=== PATIENT | female | born 2000 | race Two or more races ===

== ENCOUNTER 2025-01-10 02:54 | Observation (INO) | payer MEDICAID, SELFPAY ==
[2025-01-09 21:31] VITALS: BMI 23.3
[2025-01-09 21:56] VITALS: BP 119/78; PULSE 115; RESP 20; TEMP 37.6; O2SAT 97
--- NOTE | 2025-01-09 22:03 | PD.EDRME ---
Rapid Medical Screening Exam RME Arrival date/time: 01/09/25 21:30 24 yo f present to ED for c/o n/v for 1 day + 31 week I have greeted and performed a focused initial assessment of this patient. A comprehensive ED assessment and evaluation of the patient, analysis of all test results, and completion of the medical decision making process will be conducted by additional ED providers. Chief Complaint: Fever Time Seen by Provider: 01/09/25 21:39 Vital signs: Vital Signs Temperature 99.6 F 01/09/25 21:56 Pulse Rate 115 H 01/09/25 21:56 Respiratory Rate 20 01/09/25 21:56 Blood Pressure 119/78 01/09/25 21:56 Pulse Oximetry (%) 97 01/09/25 21:56 Oxygen Delivery Method Room Air 01/09/25 21:56
[2025-01-09 22:34] VITALS: BP 128/79; PULSE 135; RESP 18; TEMP 38.2; O2SAT 97
[2025-01-09 22:36] LABS: Basophils % (Auto) 0 % (0-2.5); Eosinophils % (Auto) 0 % (0-10); Hematocrit 35.5 % (36.0-46.0); Hemoglobin 12.9 g/dL (12.0-16.0); Immature Granulocytes % (Auto) 1 % (0-0); Immature Granulocytes Auto 0.14 Thou/mm3 (0.00-0.00); Lymphocytes # (Auto) 1.1 Thou/mm3 (1.0-4.8); Lymphocytes % (Auto) 7 % (10-50); Mean Corpuscular HGB Conc 36.3 g/dl (31.0-37.0); Mean Corpuscular Hemoglobin 31.8 pg (25.0-35.0); Mean Corpuscular Volume 87 fL (80-100); Monocytes # (Auto) 0.8 Thou/mm3 (0.0-0.8); Monocytes % (Auto) 6 % (0-12); Neutrophils # (Auto) 12.9 Thou/mm3 (1.8-7.7); Neutrophils % (Auto) 86 % (37-80); Nucleated Red Blood Cell % 0 /100 WBC (0); Platelet Count 140 Thou/mm3 (140-440); RDW Standard Deviation 44.7 fL (36.4-46.3); Red Blood Count 4.06 Miln/mm3 (4.00-5.20); White Blood Count 14.9 Thou/mm3 (3.6-11.0)
--- NOTE | 2025-01-09 22:36 | XR_ITS ---
Examination: AP chest single view TECHNIQUE: AP portable upright chest single view Examination time: January 09, 2025, 10:48 PM INDICATIONS: Sepsis. Today FINDINGS: Normal heart size No pneumonia or pulmonary edema No left-sided rib fractures IMPRESSION: No pneumonia or pulmonary edema
--- NOTE | 2025-01-09 22:36 | EKG_ITS ---
[facility] Test Date: 2025-01-09 Pat Name: TIMOTHY NORMAN Department: Room: - Gender: Female Life Sciences Instructor: : 2000 Requested By: Kalli Davidson Order Number: [id number] Reading MD: Kalli Davidson Measurements Intervals [place] Rate: 131 P: 37 MA: 139 QRS: -10 QRSD: 77 T: 6 QT: 289 QTc: 427 Interpretive Statements SINUS TACHYCARDIA ABNORMAL RHYTHM ECG No previous ECG available for comparison /store/S0/[id number].pdf
[2025-01-09 22:44] LABS: Lactate (Lactic Acid) 1.3 mMol/L (0.4-2.0)
[2025-01-09 22:51] LABS: Partial Thromboplastin Time 26.8 Seconds (22.0-36.0); Prothrombin Time 10.5 Seconds (9.0-12.2)
--- NOTE | 2025-01-09 22:54 | PC.NURSE ---
Initial contact with pt. N/V/D, and fever since 09:00. Denies any contraction, vag discharge or abd pain. at bedside.
[2025-01-09 22:56] LABS: Alanine Aminotransferase 19 U/L (10-49); Albumin, Serum 3.8 gm/dL (3.5-5.0); Albumin/Globulin Ratio 1.4 (1.2-2.2); Alkaline Phosphatase 130 U/L (46-116); Anion Gap 8 (7-16); Aspartate Amino Transferase 18 U/L (0-34); BUN/Creatinine Ratio 8 Ratio (12-20); Bilirubin,Total 0.4 mg/dL (0.3-1.2); Blood Urea Nitrogen < 5 mg/dL (9-23); Calcium (Corrected) 9.2 mg/dL (8.5-10.1); Carbon Dioxide 21.6 mMol/L (20.0-31.0); Chloride 105 mMol/L (98-107); Creatinine (Component) 0.6 mg/dL (0.6-1.3); Globulin 2.7 gm/dL (2.3-3.5); Glucose 95 mg/dL (74-106); Lipase 56 U/L (12-53); Osmolality,Calculated 267 (275-295); Potassium 3.6 mMol/L (3.4-5.1); Sodium 135 mMol/L (136-145); Total Protein 6.5 gm/dL (5.7-8.2); Troponin I < 0.002 ng/mL (0.0-0.045); eGFR > 60 See Note
[2025-01-09 23:00] VITALS: BP 109/74; PULSE 138; RESP 28; TEMP 37.7; O2SAT 98
[2025-01-09] MEDS: SODIUM CHLORIDE 0.9% 1000 ML 1,000 ML 999 ML IV (23:10)
[2025-01-09 23:14] VITALS: TEMP 37.7
[2025-01-09] MEDS: METOCLOPRAMIDE INJ 5 MG/ML VIAL 2 ML 10 MG IVP (23:14)
[2025-01-09] MEDS: ACETAMINOPHEN 325 MG TABLET 650 MG PO (23:14)
--- NOTE | 2025-01-09 23:49 | EDNOTE_ITS ---
Nausea/Vomit./Diarrhea-RME/HPI General Chief complaint: Fever Stated complaint: FEVER, VOMITING, 7 MONTHS Time Seen by Provider: 01/09/25 21:39 Source: patient Arrival date/time: 01/09/25 21:30 Mode of arrival: ambulatory Limitations: no limitations RME / HPI RME / HPI Narrative: 01/09/25 21:30 24 yo f present to ED for c/o n/v for 1 day + 31 week I have greeted and performed a focused initial assessment of this patient. A comprehensive ED assessment and evaluation of the patient, analysis of all test results, and completion of the medical decision making process will be conducted by additional ED providers. Dr. Reece?s Main ED Evaluation: 24-year-old female at 31 weeks gestation presenting to the emergency department after 1 day history of vomiting and nonbloody diarrhea. The patient states she was tolerating p.o. yesterday. She comes the emergency department for subjective fever today at home. No abdominal pain. No abdominal cramping. No cough. Related Data Previous Rx's ?Medication ?Instructions ?Recorded ibuprofen 600 mg tablet 600 mg PO Q6H #30 tabs 03/17 Allergies Allergy/AdvReac Type Severity Reaction Status Date / Time Penicillins Allergy Unknown Verified 03/17/24 10:59 Review of Systems Review of Systems Systems Reviewed: All systems reviewed, normal except as documented Past Medical History Past Medical History NEUROLOGIC: Negative Neurological Disorders CARDIAC: Negative Cardiac Disorders Social History SMOKING STATUS: Never smoker ED Exam General Limitations: Present no limitations General appearance: Present alert and in no apparent distress Head Head exam: Present atraumatic Eye Eye exam: Present normal appearance, PERRL and EOMI ENT ENT exam: Present normal exam, normal oropharynx and mucous membranes moist Neck Neck exam: Present normal inspection, full ROM and trachea midline Chest Chest inspection: Present normal inspection and symmetric chest wall rise Respiratory Respiratory exam: Present normal lung sounds bilaterally Cardiovascular Cardiovascular exam: Present regular rate, normal rhythm and normal heart sounds Abdominal Exam Abdominal exam: Present soft and normal bowel sounds Extremities Exam Extremities exam: Present normal inspection and full ROM Back Exam Back exam: Present normal inspection and full ROM Neurological Exam Neurological exam: Present alert, oriented X3 and CN II-XII intact Psychiatric Psychiatric exam: Present normal affect and normal mood Skin Skin exam: Present warm, dry, intact and normal color Course Course Course Narrative: 2235 Sepsis alert initiated. Orders made at this time are congruent with ED Marco Antonio lt Sepsis Order List. Re-evaluation is to be completed. 2309 Sepsis reassessment performed consisting of lab review, vitals, physical exam including auscultation of heart, lungs, and visual evaluation of capillary refills, mucosal membranes and extremities. Quality Measures Current suspected stage: sepsis Possible source: unknown Blood cultures ordered: yes Antibiotic ordered: Yes Pertinent labs: 01/09/25 22:16 Lactic Acid 1.3 mMol/L (0.4-2.0) sepsis Orders Category Date Time Status Place in Observation Status Routine Admission 01/10/25 03:25 Active Bedside COVID-19 Antigen Test NOW Care 01/10/25 00:10 Active Bedside Influenza A&B Antigen Test NOW Care 01/09/25 22:03 Completed Bedside Influenza A&B Antigen Test NOW Care 01/10/25 00:10 Completed Clinical Assistant Q4H START 00 Care 01/09/25 22:36 Active Continuous Monitoring Routine Care 01/10/25 03:26 Ordered Continuous Pulse Oximetry NOW Care 01/09/25 22:36 Completed heart tone auscultation Q4H Care 01/09/25 22:02 Active IV [Insert IV] STAT Care 01/09/25 22:02 Active In and Out Catheter PRN Care 01/09/25 22:36 Active Insert IV NOW Care 01/09/25 22:36 Active NPO NOW Care 01/09/25 22:36 Active Non-Stress Test NOW Care 01/09/25 22:45 Active Non-Stress Test Now Care 01/10/25 03:26 Active Diet NPO (NOW) Diet 01/09/25 22:36 Active US OB >= 14 weeks Fetus Stat Exams 01/10/25 03:29 Ordered US OB biophysical profile Stat Exams 01/10/25 03:41 Ordered XR chest 1V SEPSIS PROTOCOL Stat Exams 01/09/25 22:36 Completed Blood Culture (Lab) Stat Lab 01/09/25 22:11 Received CBC Stat Lab 01/09/25 22:16 Completed CMP [Comprehensive Metabolic Panel] Stat Lab 01/09/25 22:16 Completed Influenza A & B Rapid Panel Stat Lab 01/10/25 00:00 Stop Req Lactate (Lactic Acid) Stat Lab 01/09/25 22:16 Completed Lipase Stat Lab 01/09/25 22:16 Completed Partial Thromboplastin Time Stat Lab 01/09/25 22:16 Completed Prothrombin Time with INR Stat Lab 01/09/25 22:16 Completed Troponin I Stat Lab 01/09/25 22:16 Completed UA [Urinalysis] Stat Lab 01/09/25 23:54 Completed UA, C/S IF [Urinalysis, C/S if Indicated] Stat Lab 01/10/25 01:51 Completed Urinalysis Stat Lab 01/09/25 23:54 Completed Urine Culture Stat Lab 01/09/25 23:54 Received Acetaminophen Tab [Tylenol Tab] Med 01/09/25 22:39 Discontinued 650 mg PO X1 ONE Metoclopramide Inj [Reglan Inj] Med 01/09/25 22:02 Discontinued 10 mg IVP X1 ONE Ringers Lactated 1000 ml [Lactated Ringers] 1,000 ml Med 01/10/25 03:30 Discontinued IV 125 mls/hr Sodium Chloride 0.9% 1000 ml [Ns] 1,000 ml Med 01/10/25 03:40 Discontinued IV 125 mls/hr Sodium Chloride 0.9% 1000 ml [Ns] 1,000 ml Med 01/10/25 03:46 Active IV 125 mls/hr Sodium Chloride 0.9% 1000 ml [Ns] 1,000 ml Med 01/09/25 22:03 Discontinued IV 999 mls/hr Sodium Chloride 0.9% 1000 ml [Ns] 1,000 ml Med 01/10/25 01:40 Discontinued IV 999 mls/hr cefTRIAXone/D5w 1gm IV premix [Rocephin/D5w 1gm IV Med 01/10/25 01:39 Discontinued premix] 50 ml IV X1 EKG (RT) Stat RT 01/09/25 22:36 Draft Oxygen Delivery NOW RT 01/09/25 22:36 Active Vital Signs Vital signs: Vital Signs Temperature 99.6 F 01/09/25 21:56 Pulse Rate 115 H 01/09/25 21:56 Respiratory Rate 20 01/09/25 21:56 Blood Pressure 119/78 01/09/25 21:56 Pulse Oximetry (%) 97 01/09/25 21:56 Oxygen Delivery Method Room Air 01/09/25 21:56 Nausea/Vomiting/Diarrhea MDM Narrative MDM Narrative:: 24-year-old female at 31 weeks gestation and patient of Dr. Krishna presenting to the emergency department of 1 day of vomiting and diarrhea. Low-grade temp at 100.7 here in the emergency department and tachycardic. Patient screened positive for maternal sepsis secondary to her pulse being 130 temp being 100.7 and respiratory rate 22. The patient was 97% on room air and had good heart tones. While in the emergency department the patient had toco monitor done by the [facility] nurses and reported possible contractions. The patient states she does not feel that she is having contractions at this time. Her abdomen is soft and nontender. No CVA tenderness. Review of her blood shows a white count of 14 with manual creatinine normal at 5 and 0.6. Lactic acid is 1.3 and AST ALT and total bili are normal. Alk phos is slightly elevated at 130. Troponin is negative. Her initial urine had squamous cells but repeat urinalysis shows 2+ ketones negative nitrates, positive leukocytes, and 5 white blood cells. Chest x-ray shows no evidence of pneumonia. Patient had influenza and COVID done which were negative. Again the patient is not having dysuria, abdominal pain, chest pain or syncope. Scribe Attestation: I, Dea Matson, am scribing for and in the presence of Dr. Reece. Provider Notation: Although this document has been carefully reviewed, there may still be some phonetic and other typographical errors. These errors are purely grammatical due to imperfections in the software program and should not be construed in any way to compromise the substance of the patient's medical care during this visit. Patient data External records reviewed:: [facility] previous records Clinical information provided by:: patient Social determinants that could affect healthcare access:: none Patient has the following chronic illnesses:: na How is presenting disease/condition affected by chronic disease/condition?: no chronic disease Evaluation data The following diagnostics were reviewed and interpreted by me:: lab results, radiology exam(s) and EKG tracing(s) Lab and/or radiology exams considered but not ordered:: na Interpretation Summary: Examination: AP chest single view TECHNIQUE: AP portable upright chest single view Examination time: January 09, 2025, 10:48 PM INDICATIONS: Sepsis. Today FINDINGS: Normal heart size No pneumonia or pulmonary edema No left-sided rib fractures IMPRESSION: No pneumonia or pulmonary edema Dictated By: Marc Marquez MD Medications / Prescriptions Medications / Prescriptions considered but not ordered:: na Medication administrations:: Medication Administration History Sodium Chloride (Ns) 1,000 mls @ 125 mls/hr IV .Q8H KAT Stop: 02/09/25 03:45 Last Admin: 01/10/25 03:57 Dose: 125 mls/hr Documented By: KG Discontinued Medications Acetaminophen (Acetaminophen 325 Mg Tablet) 650 mg PO X1 ONE Stop: 01/09/25 22:40 Last Admin: 01/09/25 23:14 Dose: 650 mg Documented By: LB Sodium Chloride (Ns) 1,000 mls @ 999 mls/hr IV .Q1H1M ONE Stop: 01/09/25 23:03 Last Infusion: 01/10/25 01:39 Dose: Infused Documented By: Admin: 01/09/25 23:10 Dose: 999 mls/hr Documented By: LB Ceftriaxone Sodium/Dextrose (Rocephin/D5w 1gm Iv Premix) 50 mls @ 100 mls/hr IV X1 ONE Stop: 01/10/25 02:08 Sodium Chloride (Ns) 1,000 mls @ 999 mls/hr IV .Q1H1M ONE Stop: 01/10/25 02:40 Last Admin: 01/10/25 02:06 Dose: 999 mls/hr Documented By: LB Lactated Ringer's (Lactated Ringers) 1,000 mls @ 125 mls/hr IV .Q8H KAT Stop: 02/09/25 03:29 Sodium Chloride (Ns) 1,000 mls @ 125 mls/hr IV .Q8H KAT Stop: 02/09/25 03:39 Metoclopramide HCl (Metoclopramide Inj 5 Mg/Ml Vial 2 Ml) 10 mg IVP X1 ONE; Protocol Stop: 01/09/25 22:03 Last Admin: 01/09/25 23:14 Dose: 10 mg Documented By: LB as above Consultations Consultation(s) initiated? (list below): Yes Consultation #1 (Physician, Specialty, Details): see MDM Diagnosis Nausea Differential Diagnosis: other Most likely diagnosis given after review of the tests above:: see clinical impression below Admission Indicated Admission indicated?: indicated Admission Request Was there a request for admission?: Yes Admission Attestation Admission request attestation: Discussed case with [] from Hospitalist service regarding admission. Discussed patients ED course, exam findings, labs, and radiology results. The Hospitalist [agrees,declines] to accept the patient for admission. Disposition Plan Disposition Plan: Admit Critical Care Time Critical Care Time Critical Care Time: Yes Total Critical Care Time (min.): 45 Attestation: The high probability of sudden, clinically significant deterioration in the patient?s condition required the highest level of my preparedness to intervene urgently. ? The services I provided to this patient were to treat and/or prevent clinically significant deterioration. Services included the following: chart data review, reviewing nursing notes and/or old charts, documentation time, financial analysis consultant collaboration regarding findings and treatment options, medication orders and management, direct patient care, vital sign assessments and ordering, interp reting and reviewing diagnostic studies and lab tests. ? Aggregate critical care time includes only time during which I was engaged in work directly related to the patient?s care, as described above, whether at bedside or elsewhere in the Emergency Department. It did not include time spent performing other reported procedures or the services of residents, students, nurses or physician assistants. Discharge Plan Plan Disposition Comment: Patient close to the emergency department to [facility] Patient condition on transfer: Stable Prescriptions/Referrals Prescriptions/Med Rec: No Action ibuprofen 600 mg tablet 600 mg PO Q6H Qty: 30 0RF Referrals: No Primary/Family,Physician [Primary Care Provider] - In 1 week Patient/Caregiver Discharge Instructions Print Language: Kiswahili Stand Alone Forms: Kelsey Award Info., Patient Portal Info Letter
[2025-01-10] VITALS (41 sets, daily range): BP systolic 92–123; BP diastolic 53–70; PULSE 112–139; RESP 18–98; TEMP 37–37.7; O2SAT 94–100; BMI 27.4
[2025-01-10] LABS: Collection Type, Urine Clean Catch; Collection Type, Urine Voided
[2025-01-10 00:11] LABS: Bilirubin,Urine Negative (Negative); Blood,Urine Trace (Negative); Budding Yeast,Urine Present; Clarity,Urine Turbid (Clear/Hazy); Color,Urine Yellow (Lt Yel-Yel); Glucose, Urine Negative (Negative); Hyaline Casts,Urine < 1 /hpf (0-1); Ketones,Urine Trace (Negative); Leukocyte Esterase,Urine Positive (Negative); Nitrite,Urine Negative (Negative); Protein,Urine Trace (Neg - Trace); RBC,Urine 22 /hpf (0-3); Specific Gravity,Urine 1.016 (1.001-1.035); Squamous Epithelial Cell,Urine 18 /hpf (0-5); Urobilinogen,Urine Negative mg/dL (0.0-1.0); WBC,Urine 17 /hpf (0-5)
[2025-01-10 00:29] LABS: Bacteria,Urine Rare; Bilirubin,Urine Negative (Negative); Blood,Urine Negative (Negative); Clarity,Urine Turbid (Clear/Hazy); Color,Urine Yellow (Lt Yel-Yel); Glucose, Urine Negative (Negative); Hyaline Casts,Urine < 1 /hpf (0-1); Ketones,Urine Trace (Negative); Leukocyte Esterase,Urine Positive (Negative); Nitrite,Urine Negative (Negative); Protein,Urine Trace (Neg - Trace); RBC,Urine 14 /hpf (0-3); Specific Gravity,Urine 1.016 (1.001-1.035); Squamous Epithelial Cell,Urine 16 /hpf (0-5); Urobilinogen,Urine Negative mg/dL (0.0-1.0); WBC,Urine 14 /hpf (0-5)
--- NOTE | 2025-01-10 01:26 | PC.NURSE ---
2245: Valente RNC charge nurse in RM 17 to assess pt, Pt. sitting up in bed, A/O x3, reports she came in with c/o N/V, diarrhea all day and fever, has not been able to eat anything all day. Pt. denies feeling uterine contractions, denies any pain, rates pain 0/10. reports movement, denies leaking, vaginal bleeding, BET[place]OURT, blurred vision, epigastric pain, dizziness or having sexual intercourse. BP: 109/74 HR: 126bpm, temperature: 100.0 orally, RR: 18, SPO2: 98% RA. 2306:External monitors applied to pt's abdomen, abdomen soft via palpation. 2333:Category II tracing noted. 2335:May RN notied of FHR tracing, notified that once pt. cleared from ED to transfer pt to L&D for clearance.
[2025-01-10] MEDS: SODIUM CHLORIDE 0.9% 1000 ML 1,000 ML 999 ML IV (02:06)
[2025-01-10 02:18] LABS: Collection Type, Urine Clean Catch
[2025-01-10 02:23] LABS: Bacteria,Urine Rare; Bilirubin,Urine Negative (Negative); Blood,Urine Negative (Negative); Clarity,Urine Clear (Clear/Hazy); Color,Urine Lt-Yellow (Lt Yel-Yel); Culture Indicated,Urine Not Indicated; Glucose, Urine Negative (Negative); Hyaline Casts,Urine < 1 /hpf (0-1); Ketones,Urine 2+ (Negative); Leukocyte Esterase,Urine Positive (Negative); Nitrite,Urine Negative (Negative); PH,Urine 6.5 (5.0-7.0); Protein,Urine Negative (Neg - Trace); RBC,Urine 6 /hpf (0-3); Specific Gravity,Urine 1.008 (1.001-1.035); Squamous Epithelial Cell,Urine 2 /hpf (0-5); Urobilinogen,Urine Negative mg/dL (0.0-1.0); WBC,Urine 5 /hpf (0-5)
--- NOTE | 2025-01-10 03:29 | XR_ITS ---
Examination: Complete OB ultrasound greater than 14 weeks Date and time of exam: January 10, 2025 0522 hours INDICATIONS: Nausea vomiting onset today Findings: Viable intrauterine single fetus with single amniotic sac presentation cephalic Cardiac motion 167 BPM Placenta posterior grade 1 Umbilical cord insertion seen 3 vessel Amniotic fluid index 16.2 cm Cervix 3.5 cm Ovaries are obscured by bowel gas. Composite estimated gestational age based on BPD, head circumference, abdominal circumference, femur length is 31 weeks 1 day Estimated weight 1704 g. Survey of intracranial anatomy, spinal anatomy, abdominal anatomy, four-chamber heart performed with no abnormalities identified. Impression: Viable intrauterine gestation cephalic presentation Estimated gestational age 31 weeks 1 day Estimated weight 1704.1 g.
--- NOTE | 2025-01-10 03:41 | XR_ITS ---
Examination: Biophysical profile, ultrasound Date and time of exam: January 10, 2025 at 0538 hours INDICATIONS: Nausea vomiting today Technique: Multiple transabdominal sonographic images of the pelvis abdomen obtained. Attention is directed to the breathing movement, gross body movement, amniotic fluid volume and tone. Findings: Amniotic fluid index 16.6 cm Total biophysical profile is 8 of 8. breathing movement is 2. Gross body movement is 2. tone is 2. Qualitative amniotic fluid volume is 2 Impression: Biophysical profile is 8 of 8.
[2025-01-10] MEDS: SODIUM CHLORIDE 0.9% 1000 ML 1,000 ML 125 ML IV (03:57)
== END 2025-01-10 06:32 | disposition home or self-care (01) ==
PROVIDERS: Emergency Medicine; Physician Assistant; Admitting Provider Obstetrics & Gynecology; Visit Provider Obstetrics & Gynecology
DX: O21.2 Late vomiting of pregnancy (principal); O26.893 Other specified pregnancy related conditions, third trimester; R50.9 Fever, unspecified; Z3A.31 31 weeks gestation of pregnancy
CPT/HCPCS: 36415; 59899; 71045; 76805; 76819; 80053; 81001; 83605; 83690; 84484; 85025; 85610; 85730; 87040; 87086; 87400; 87502; 87811; 93005; 96361; 96374; 99291; J2765; J7030; A9270

== ENCOUNTER 2025-03-10 16:16 | Observation (INO) | payer MEDICAID, SELFPAY ==
[2025-03-10] VITALS (27 sets, daily range): BP systolic 112–132; BP diastolic 61–83; PULSE 72–123; RESP 16–18; TEMP 36.3–36.8; O2SAT 96–100; BMI 32.9
[2025-03-10 18:17] LABS: Basophils % (Auto) 0 % (0-2.5); Eosinophils # (Auto) 0.1 Thou/mm3 (0.0-0.5); Eosinophils % (Auto) 1 % (0-10); Hematocrit 36.1 % (36.0-46.0); Hemoglobin 13.1 g/dL (12.0-16.0); Immature Granulocytes % (Auto) 1 % (0-0); Immature Granulocytes Auto 0.04 Thou/mm3 (0.00-0.00); Lymphocytes # (Auto) 1.5 Thou/mm3 (1.0-4.8); Lymphocytes % (Auto) 19 % (10-50); Mean Corpuscular HGB Conc 36.3 g/dl (31.0-37.0); Mean Corpuscular Hemoglobin 31.2 pg (25.0-35.0); Mean Corpuscular Volume 86 fL (80-100); Monocytes # (Auto) 0.4 Thou/mm3 (0.0-0.8); Monocytes % (Auto) 6 % (0-12); Neutrophils # (Auto) 5.9 Thou/mm3 (1.8-7.7); Neutrophils % (Auto) 74 % (37-80); Nucleated Red Blood Cell % 0 /100 WBC (0); Platelet Count 125 Thou/mm3 (140-440)
--- NOTE | 2025-03-10 19:08 | XR_ITS ---
Examination: Complete OB ultrasound greater than 14 weeks Date and time of exam: March 10, 2005 1927 hours INDICATIONS: LABOR INDUCTION unknown size and dates Findings: Viable intrauterine single fetus with single amniotic sac presentation cephalic Placenta anterior grade 3 Three-vessel umbilical cord Amniotic fluid index 6.6 cm Ovaries are obscured by the fetus Composite estimated gestational age based on BPD, head circumference, abdominal circumference, femur length is 37 weeks 5 days Estimated weight 3170.5 g. Survey of intracranial anatomy, spinal anatomy, abdominal anatomy, four-chamber heart performed with no abnormalities identified. Impression: Viable intrauterine gestation cephalic presentation.
[2025-03-10 22:18] LABS: Syphilis Nonreactive (Nonreactive)
[2025-03-11] VITALS (99 sets, daily range): BP systolic 99–126; BP diastolic 55–79; PULSE 67–127; RESP 18; TEMP 36.6; O2SAT 92–99
[2025-03-11] MEDS: MISOPROSTOL 50 mCg TABLET PO (02:07)
--- NOTE | 2025-03-11 06:34 | PD.LDHP ---
Documentation for date of: 03/11/25 OB Labor/Induct. HPI History of Present Illness Chief complaint: Induction of labor : 1 Para: 0 Date of last menstrual period: 06/04/24 BEAN: 03/11/25 Gestational age based on last menstrual period: 40 History of present illness: 24-year-old 1 para 0 at 40 weeks and 0 days presents for elective induction of labor Patient receives care at [facility]. Limited records are available at this time but based on what is available the baby was noted to have muscular VSD in the second trimester. She denies any contractions or leakage of fluid or vaginal bleeding and reports adequate movements Labs were obtained from [facility] and include the following Group B strep negative on 02/16/2025 CBC on 11/26/2024 shows hemoglobin of 12.6 hematocrit of 38 3 and platelets were 145 Maternity 21 testing on 09/17/2024 shows trisomy 2118 and 13 negative and gender consistent with female SMA testing was negative cystic fibrosis testing was negative initial screen that was done on 07/20/2024 shows hepatitis B negative hepatitis C negative RPR nonreactive blood group is O+ antibody screen negative HIV negative gonorrhea and Chlamydia negative CBC showed a hemoglobin of 13.9 platelets of 175 toxicology screen was negative Labs Labs: Negative: RPR, Hepatitis B, Rubella Titre, HIV, Chlamydia, Gonorrhea and Group Beta Strep Review of Systems Review of Systems Systems Reviewed: All systems reviewed, normal except as documented Meds Home Medications and Allergies Allergies Allergy/AdvReac Type Severity Reaction Status Date / Time Penicillins Allergy Unknown Verified 03/17/24 10:59 OB Exam Physical Exam Vital signs: Temp Pulse Resp BP Pulse Ox 97.4 F 102 H 18 108/66 94 L 03/10/25 23:48 03/11/25 06:13 03/10/25 23:48 03/11/25 06:13 03/11/25 06:24 Constitutional Constitutional: no acute distress Routine HEENT Exam Head: Present normocephalic and atraumatic Eye: Present EOMI and PERRL ENT: Present mucous membranes moist Routine Neck Exam Neck: Present supple and trachea midline Routine Cardiovascular Exam Cardiovascular: Present RRR Routine Abdominal Exam Abdominal: Present soft and normoactive bowel sounds Detailed Labor and Delivery Exam Dilation (cm): 0 Effacement (%): 0 Cervix position: posterior station: -4 Consistency: firm Presentation: Vertex Baseline heart rate: 135 monitor accelerations: 15x15 monitor decelerations: None terminal gauger variability: Average (6-10) Contraction frequency (min): 10 Routine Extremities Exam Extremities: Present full ROM Routine Skin Exam Skin: Present intact, dry and warm Routine Neurological Exam Neurological: Present alert, oriented X3 and CN II-XII intact Routine Psychiatric Exam Psychiatric: Present normal affect and normal thought process OB Results Labs 03/10/25 17:35 Labs: Short CBC 03/10/25 Range/Units 17:35 WBC 8.0 (3.6-11.0) Thou/mm3 Hgb 13.1 (12.0-16.0) g/dL Hct 36.1 (36.0-46.0) % Plt Count 125 L (140-440) Thou/mm3 OB Assessment & Plan Assessment and Plan (1) Encounter for induction of labor: Status: Acute Assessment and plan: 24year-old at 40-0/7 weeks gestation by, presents for induction of labor No rupture of membranes reported. No vaginal bleeding. movement reported as reassuring. No complications reported this . Plan: Admit to Labor and Delivery for induction of labor Cervical ripening with misoprostol, Proceed to Pitocin when Carroll score is favorable Monitor heart tones and uterine activity (continuous EFM) Obtain admission labs: CBC, type & screen, RPR Complete OB ultrasound to confirm presentation and EFW IV access , start LR at 125cc/hr Pain management: patient desires ? (epidural/IV pain meds/unmedicated) GBS status: Negative Cervical exams as needed for labor progress Notify MD/CNM of labor progression or complications Delivery plan: ? vaginal delivery anticipated (2) Ventricular septal defect of fetus in long , antepartum: Status: Acute
--- NOTE | 2025-03-11 11:57 | PD.LDPN ---
Documentation for date of: 03/11/25 OB Labor Progress Note Pain Control Comments: Pt changed her mind about wanted to be induced and is requesting to be discharged home with follow up for induction at 41 weeks. Pelvic Exam Dilation (cm): 0 Effacement (%): 0 station: -4 Amniotic membrane status: Intact Contractions Monitor mode: External Contraction frequency: 2-3 Contraction pattern: Coupling Contraction intensity: Mild Status status: Category l Assessment and Plan Comments: Refuses induction of labor Discharge home Follow up for IOL at 41 weeks if undelivered by then.
--- NOTE | 2025-03-11 11:59 | ESDS_ITS ---
DS: Providers Provider Date of admission: 03/10/25 16:16 Primary care physician: Drew Quintero MD Admitting Provider: Holden Gonzalez MD Attending Provider on Admission: Reed Cage MD Attending Provider on DC: Reed Cage MD Discharging Provider: Reed Cage MD DS: Diagnosis Problem List Completed Was Problem List Reviewed/Reconciled?: Yes Summary/Hosp Course Brief History: 24-year-old 1 para 0 at 40 weeks and 0 days presents for elective induction of labor Patient receives care at [facility]. Limited records are available at this time but based on what is available the baby was noted to have muscular VSD in the second trimester. She denies any contractions or leakage of fluid or vaginal bleeding and reports adequate movements Labs were obtained from [facility] and include the following Group B strep negative on 02/16/2025 CBC on 11/26/2024 shows hemoglobin of 12.6 hematocrit of 38 3 and platelets were 145 Maternity 21 testing on 09/17/2024 shows trisomy 2118 and 13 negative and gender consistent with female SMA testing was negative cystic fibrosis testing was negative initial screen that was done on 07/20/2024 shows hepatitis B negative hepatitis C negative RPR nonreactive blood group is O+ antibody screen negative HIV negative gonorrhea and Chlamydia negative CBC showed a hemoglobin of 13.9 platelets of 175 toxicology screen was negative After being admitted the patient changed her mind about being induced and decided to go home. She will be rescheduled for induction of labor at 41 weeks. Time Spent with Patient Time attestation: Total time spent providing and/or coordinating discharge services: Exam Vital Signs Temp Pulse Resp BP Pulse Ox 97.4 F 83 18 111/68 94 L 03/10/25 23:48 03/11/25 10:22 03/10/25 23:48 03/11/25 10:22 03/11/25 06:24 Discharge Plan Prescriptions/Referrals Prescriptions/Med Rec: No Action ibuprofen 600 mg tablet 600 mg PO Q6H Qty: 30 0RF Referrals: Drew Quintero MD [Primary Care Provider] - Patient/Caregiver Discharge Instructions Print Language: Dutch Planned Discharge Date 03/11/25
== END 2025-03-11 12:15 | disposition home or self-care (01) | DRG 566 ==
PROVIDERS: Admitting Provider Obstetrics & Gynecology; PCP Family Medicine; Visit Provider Specialist
DX: O48.0 Post-term pregnancy (principal); Z3A.40 40 weeks gestation of pregnancy
CPT/HCPCS: 36415; 59899; 76805; 85025; 86780; 86850; 86900; 86901; G0378; A9270

== ENCOUNTER 2025-03-18 10:16 | Inpatient (IN) | payer MEDICAID, SELFPAY ==
[2025-03-18] VITALS (20 sets, daily range): BP systolic 102–128; BP diastolic 55–96; PULSE 78–127; RESP 16–19; TEMP 36.3–37; BMI 32.1
[2025-03-18 11:00] LABS: Basophils % (Auto) 0 % (0-2.5); Eosinophils # (Auto) 0.1 Thou/mm3 (0.0-0.5); Eosinophils % (Auto) 1 % (0-10); Hematocrit 38.4 % (36.0-46.0); Immature Granulocytes % (Auto) 1 % (0-0); Immature Granulocytes Auto 0.05 Thou/mm3 (0.00-0.00); Lymphocytes # (Auto) 1.8 Thou/mm3 (1.0-4.8); Lymphocytes % (Auto) 21 % (10-50); Mean Corpuscular HGB Conc 36.5 g/dl (31.0-37.0); Mean Corpuscular Hemoglobin 30.9 pg (25.0-35.0); Mean Corpuscular Volume 85 fL (80-100); Monocytes # (Auto) 0.4 Thou/mm3 (0.0-0.8); Monocytes % (Auto) 5 % (0-12); Neutrophils # (Auto) 6.4 Thou/mm3 (1.8-7.7); Neutrophils % (Auto) 73 % (37-80); Nucleated Red Blood Cell % 0 /100 WBC (0); Platelet Count 129 Thou/mm3 (140-440); RDW Standard Deviation 44.1 fL (36.4-46.3); Red Blood Count 4.53 Miln/mm3 (4.00-5.20); White Blood Count 8.7 Thou/mm3 (3.6-11.0)
[2025-03-18 11:36] LABS: Syphilis Nonreactive (Nonreactive)
--- NOTE | 2025-03-18 11:46 | ESHP_ITS ---
Documentation for date of: 03/18/25 OB Labor/Induct. HPI History of Present Illness : 1 Para: 0 Date of last menstrual period: 06/04/24 BEAN: 03/11/25 Gestational age based on last menstrual period: 41 History of present illness: 24-year-old 1 para 0 at 41 weeks and 0 days presents for induction of labor for postdates. Patient receives care at [facility]. Limited records are available at this time but based on what is available the baby was noted to have muscular VSD in the second trimester. She denies any contractions or leakage of fluid or vaginal bleeding and reports adequate movements. US at [facility] on 03/10 shows EFW 3170g. Labs were obtained from [facility] and include the following Group B strep negative on 02/16/2025 CBC on 11/26/2024 shows hemoglobin of 12.6 hematocrit of 38 3 and platelets were 145 Maternity 21 testing on 09/17/2024 shows trisomy 2118 and 13 negative and gender consistent with female SMA testing was negative cystic fibrosis testing was negative initial screen that was done on 07/20/2024 shows hepatitis B negative hepatitis C negative RPR nonreactive blood group is O+ antibody screen negative HIV negative gonorrhea and Chlamydia negative CBC showed a hemoglobin of 13.9 platelets of 175 toxicology screen was negative Labs Labs: Negative: RPR, Hepatitis B, Rubella Titre, HIV, Chlamydia, Gonorrhea and Group Beta Strep History of Present Medical complications: none Labs Labs: Negative: RPR, Hepatitis B, Rubella Titre, HIV, Chlamydia, Gonorrhea and Group Beta Strep and Unknown: Herpes Type 1, Herpes Type 2 and Covid-19 Review of Systems Review of Systems Narrative Review of Systems: No headache, or change in vision or RUQ pain. No chest pain, cough, shortness of breath or LE pain. No bleeding or leaking. Meds Home Medications and Allergies Home Medications ?Medication ?Instructions ?Recorded ?Confirmed ?Type No Known Home Medications 03/18/2504/06 History Allergies Allergy/AdvReac Type Severity Reaction Status Date / Time Penicillins Allergy Unknown Verified 03/18/25 10:29 OB Exam Physical Exam Vital signs: Temp Pulse Resp BP 98.1 F 94 17 102/72 03/18/25 10:42 03/18/25 11:42 03/18/25 10:42 03/18/25 11:42 Routine HEENT Exam Comments: Oropharnyx and sclera clear. Routine Respiratory Exam Comments: CTA B/L Routine Cardiovascular Exam Comments: RRR Routine Abdominal Exam Comments: Gavid term size, nontender Detailed Labor and Delivery Exam Dilation (cm): finger tip Effacement (%): 0 station: -3 Presentation: Vertex (per RN exam ) Cervical ripeness score: 1 Membranes: intact Routine Extremities Exam Comments: Nontender Routine Skin Exam Comments: No gross rashes or lesions Routine Neurological Exam Comments: No focal deficit OB Results Labs 03/18/25 10:45 Labs: Short CBC 03/18/25 Range/Units 10:45 WBC 8.7 (3.6-11.0) Thou/mm3 Hgb 14.0 (12.0-16.0) g/dL Hct 38.4 (36.0-46.0) % Plt Count 129 L (140-440) Thou/mm3 Impressions Impression: IUP 41w0d Postdates Induction of Labor Fetus with midmuscular VSD EFW 3400g. Cervical ripening followed by Pitocin. Informed consent obtained. Patient was made aware of the risks, complications, alternatives and benefits of induction of labor, operative vaginal delivery and delivery and agrees with these modes of delivery if indicated.
[2025-03-18] MEDS: DINOPROSTONE 10 MG VAG.SUPP VAGINAL (12:42)
[2025-03-18] MEDS: RINGERS LACTATED 1000 ML 1,000 ML 100 ML IV (12:44)
[2025-03-19] VITALS (166 sets, daily range): BP systolic 102–149; BP diastolic 51–91; PULSE 56–126; RESP 17–20; TEMP 36.7–38.1; O2SAT 85–100
[2025-03-19] MEDS: fentaNYL CIT INJ 50 mCg/ML AMP 2ML 100 MCG IVP ×2 (00:04→02:35)
[2025-03-19] MEDS: OXYTOCIN in NS 30 units 30 UNIT/500 ML BAG IV (01:00)
[2025-03-19] MEDS: RINGERS LACTATED 1000 ML 1,000 ML 100 ML IV ×4 (02:37→14:19)
--- NOTE | 2025-03-19 07:39 | PC.NURSE ---
Oxytocin in NS 30U in 500ml titrated to 6ml/hr at 0400. unable to backchart in MAR due to current titration at 0720.
--- NOTE | 2025-03-19 09:47 | ESPR_ITS ---
Documentation for date of: 03/19/25 OB Labor Progress Note Pain Control Pain control: narcotic analgesia and other (Not tolerating pain well) Comments: The patient is a 24-year-old G1, P0 at 41 weeks with an EDC of 03/11/2025 admitted for induction of labor secondary to postdates. Dr Cage admitted the patient. She had one Cervidil that was removed as she started jet too much. She was on Pitocin when she was signed out to me. I examined the patient at 0852 and ruptured her membranes and placed internals. Clear bloody liquid was noted. Of note patient is not tolerating her pain too well. She has had 2- 3 doses of fentanyl. I encouraged placement of epidural for pain control. Father the baby is at bedside but gets queasy. Patient is planning on bringing her [id number] and to help with labor. Pelvic Exam Dilation (cm): 3 Effacement (%): 70 station: -2 Amniotic membrane status: Ruptured Comments: AROMed to patient at Contractions Monitor mode: Internal Contraction frequency: Every 2 to 3 minutes Contraction duration: 40 seconds Contraction intensity: Moderate Status status: Category l Assessment and Plan Assessment: induction ongoing Plan OB labor note: continuous present management Comments: Encouraged epidural for pain management
[2025-03-19] MEDS: LIDOCAINE HCL 1% 20 ML VIAL INFL (17:14)
[2025-03-19] MEDS: MINERAL OIL 30 ML UDC TOP (17:30)
[2025-03-19] MEDS: OXYTOCIN in NS 20 units 20 UNIT/1,000 ML BAG 125 UNIT IV (17:43)
[2025-03-19] MEDS: BENZO/LANO/ALOE (Dermoplast) 60 GM CAN 1 SPRAY TOP (18:17)
[2025-03-19] MEDS: KETOROLAC INJ 30 MG/ML VIAL IVP (18:39)
--- NOTE | 2025-03-19 19:24 | OBDSUM_ITS ---
Data (Rae) Data Hx Section: No Maternal Blood Type: O Pos Rubella Titre: Positive RPR: Non-reactive Labs: Negative: RPR, Hepatitis B, HIV, Chlamydia, Gonorrhea and Group Beta Strep : 1 Delivery Data (Rae) Labor Data Initiation of labor: Induction Induction/Augmentation Agent: Cervidil, Pitocin and Artificial ROM ROM date: 03/19/25 ROM time: 08:50 Amniotic membrane rupture type: Artificial Amniotic fluid description: Clear and Bloody Delivery Data EDC: 03/11/25 EDC calculated by:: LMP/early US confirmation Date of arrival to unit: 03/18/25 Time of arrival to unit: 10:00 Onset of labor date: 03/19/25 Onset of labor time: 08:50 Complete dilation date: 03/19/25 Complete dilation time: 16:49 delivery date: 03/19/25 [place] delivery time: 17:37 Gestational age (weeks): 41 Gestational age (days): 1 Placenta delivery date: 03/19/25 Placenta delivery time: 17:43 Stage 1 total time: Labor - Stage 1 Duration 7 hours and 59 minutes Delivered by: Virginie Qureshi ([facility]) Delivery nurse: Dallas Bradford RN [facility] nurse: Stephanie RN [employer] at delivery: No Support person(s) at delivery: Sister in law Other staff at delivery: ALEKSANDAR Mckay1, RNC Delivery Method Delivery method: Normal Vaginal Delivery Presentation: Vertex position: OA Anesthesia Type Anesthesia Type: Local and Epidural Delivery Room Medications Delivery room medications: Lidocaine (local) Placenta Placenta delivery description: Spontaneous Cord blood sent to lab: Yes cord blood collection: Cord Blood Type, Arterial Cord Blood Gas and Venous Cord Blood Gas Perineal repair Sutures used for repair: other (0-0 chromic) EBL Estimated blood loss (ml): 150 Umbilical Cord cord description: 3 Vessels, Nuchal Cord and Loose Additional Procedures The patient progressed to complete and pushed approximately 37 minutes. She delivered a liveborn female at 1737. Findings liveborn female in the CHRISTOFER presentation with a loose nuchal cord x 1 with terminal meconium after the baby was born. Apgars 8 and 8 weight was 7 pounds 1 ounce. The placenta was complete spontaneous grossly normal cord insertion was normal. The baby had a hypercoiled umbilical cord. Blood gases were sent down pH umbilical artery 7.12 pH umbilical vein 7.25. The patient sustained bilateral first-degree perineal lacerations and a U-shape around her perineum. This was repaired in a standard fashion using 2-0 chromic. Complications were none. Condition mom was in stable condition the delivery room. The baby went to the NICU for observation for some rapid breathing and evaluation of respiratory status. Complications Complications: Infant to NICU for grunting and evaluation of breathing blood gases pH umbilical artery 7.12 pH umbilical vein 7.25 Data (Rae) [place] Data order: 1 Trevorton's gender: Female Identification band number: [id number] weight (gms): 3215 g Weight (pounds): 7 lbs and 1.4 ozs [place] length: 54.61 cm 1 minute: 8 5 minutes: 8
[2025-03-20 00:01] VITALS: BP 115/79; PULSE 102; RESP 18; TEMP 36.8; O2SAT 98
[2025-03-20] MEDS: HYDROcodone/APAP 5/325 TABLET 1 TAB PO (00:05)
[2025-03-20 00:45] LABS: Basophils # (Auto) 0.1 Thou/mm3 (0.0-0.2); Basophils % (Auto) 0 % (0-2.5); Eosinophils # (Auto) 0.1 Thou/mm3 (0.0-0.5); Eosinophils % (Auto) 0 % (0-10); Hematocrit 34.8 % (36.0-46.0); Hemoglobin 12.8 g/dL (12.0-16.0); Immature Granulocytes % (Auto) 1 % (0-0); Immature Granulocytes Auto 0.12 Thou/mm3 (0.00-0.00); Lymphocytes # (Auto) 1.5 Thou/mm3 (1.0-4.8); Lymphocytes % (Auto) 6 % (10-50); Mean Corpuscular HGB Conc 36.8 g/dl (31.0-37.0); Mean Corpuscular Hemoglobin 31.5 pg (25.0-35.0); Mean Corpuscular Volume 86 fL (80-100); Monocytes # (Auto) 1.3 Thou/mm3 (0.0-0.8); Monocytes % (Auto) 5 % (0-12); Neutrophils # (Auto) 21.5 Thou/mm3 (1.8-7.7); Neutrophils % (Auto) 88 % (37-80); Nucleated Red Blood Cell % 0 /100 WBC (0); Platelet Count 133 Thou/mm3 (140-440); RDW Standard Deviation 45.6 fL (36.4-46.3); Red Blood Count 4.06 Miln/mm3 (4.00-5.20); White Blood Count 24.6 Thou/mm3 (3.6-11.0)
[2025-03-20 04:30] VITALS: BP 113/71; PULSE 99; RESP 17; TEMP 36.6; O2SAT 99
[2025-03-20 05:07] LABS: Basophils % (Auto) 0 % (0-2.5); Eosinophils % (Auto) 0 % (0-10); Hematocrit 31.4 % (36.0-46.0); Hemoglobin 11.3 g/dL (12.0-16.0); Immature Granulocytes % (Auto) 1 % (0-0); Immature Granulocytes Auto 0.09 Thou/mm3 (0.00-0.00); Lymphocytes # (Auto) 1.7 Thou/mm3 (1.0-4.8); Lymphocytes % (Auto) 9 % (10-50); Mean Corpuscular Hemoglobin 31.3 pg (25.0-35.0); Mean Corpuscular Volume 87 fL (80-100); Monocytes % (Auto) 6 % (0-12); Neutrophils # (Auto) 15.7 Thou/mm3 (1.8-7.7); Neutrophils % (Auto) 85 % (37-80); Nucleated Red Blood Cell % 0 /100 WBC (0); Platelet Count 111 Thou/mm3 (140-440); RDW Standard Deviation 45.5 fL (36.4-46.3); Red Blood Count 3.61 Miln/mm3 (4.00-5.20); White Blood Count 18.5 Thou/mm3 (3.6-11.0)
[2025-03-20 08:00] VITALS: BP 95/58; PULSE 112; RESP 19; TEMP 36.7; O2SAT 97
[2025-03-20] MEDS: ACETAMINOPHEN 325 MG TABLET 650 MG PO (09:06)
--- NOTE | 2025-03-20 09:16 | PD.LDPPPRG ---
Subjective Subjective Interval history: Patient is a 24-year-old G1 now P1 001 delivered about 1730 yesterday evening. She is resting comfortably in a chair wearing her home pajamas. Her spouse is at bedside with the baby. Patient states her bleeding is controlled she is having no fevers chills her pain is controlled with oral pain medication. Patient is working on breast-feeding but is discouraged as she does not have a lot of milk yet. She is interested in going home tonight at 24 hours if possible. Exam Vital Signs Temp Pulse Resp BP Pulse Ox O2 Del Method 98.0 F 112 H 19 95/58 L 97 Room Air 03/20/25 08:00 03/20/25 08:00 03/20/25 08:00 03/20/25 08:00 03/20/25 08:00 03/20/25 08:00 Narrative Exam Patient is alert and oriented x 3 in no apparent distress fundus is firm and nontender extremities show no significant edema or erythema Objective Labs 03/20/25 04:45 Labs: Laboratory Results - last 24 hr 03/20/25 03/20/25 00:28 04:45 WBC 24.6 H D 18.5 H D RBC 4.06 3.61 L Hgb 12.8 11.3 L Hct 34.8 L 31.4 L MCV 86 87 MCH 31.5 31.3 MCHC 36.8 36.0 RDW Std Deviation 45.6 45.5 Plt Count 133 L 111 L Neut % (Auto) 88 H 85 H Lymph % (Auto) 6 L 9 L [place] % (Auto) 5 6 Eos % (Auto) 0 0 Baso % (Auto) 0 0 Neut # (Auto) 21.5 H 15.7 H Lymph # (Auto) 1.5 1.7 [place] # (Auto) 1.3 H 1.0 H Eos # (Auto) 0.1 0.0 Baso # (Auto) 0.1 0.0 Immature Gran # (Auto) 0.12 H 0.09 H Absolute Nucleated RBC 0.00 0.00 Immature Gran % 1 H 1 H Nucleated RBC % 0 0 Assessment & Plan Problem List (1) Post term , delivered, current hospitalization: Problem details: Patient is doing well. Discharge instructions given. If patient remains stable later today she will be discharged home. Hemoglobin pre and postdelivery are stable as are vital signs. Follow-up with for breast-feeding. [facility] Status: Acute Time Spent With Patient Time: Total time spent is greater than 50% in coordination of care (as documented) at patient's floor/unit and/or counseling patient: Time with patient: less than 15 minutes
--- NOTE | 2025-03-20 09:19 | ESDS_ITS ---
DS: Providers Provider Date of admission: 03/18/25 10:16 Primary care physician: Physician No Primary/Family Admitting Provider: Reed Cage MD Attending Provider on Admission: Reed Cage MD Consults: 03/19/25 18:19 Referral Routine Comment: Attending Provider on DC: Virginie Qureshi MD ([facility]) Discharging Provider: Virginie Qureshi MD ([facility]) Anticipated date of discharge: 03/20/25 DS: Diagnosis Discharge Diagnosis (1) Post term , delivered, current hospitalization: Status: Acute Assessment & Plan: Patient is day 1 status post vaginal delivery of 41-week and had. She is doing well. Vitals are stable hemoglobin is stable. Patient will work on breast-feeding. She will be discharged later this evening if she remains stable. Problem List Completed Was Problem List Reviewed/Reconciled?: Yes Summary/Hosp Course Brief History: 24-year-old 1 para 0 at 41 weeks and 0 days presents for induction of labor for postdates. Patient receives care at [facility]. Limited records are available at this time but based on what is available the baby was noted to have muscular VSD in the second trimester. She denies any contractions or leakage of fluid or vaginal bleeding and reports adequate movements. US at [facility] on 03/10 shows EFW 3170g. Labs were obtained from [facility] and include the following Group B strep negative on 02/16/2025 CBC on 11/26/2024 shows hemoglobin of 12.6 hematocrit of 38 3 and platelets were 145 Maternity 21 testing on 09/17/2024 shows trisomy 2118 and 13 negative and gender consistent with female SMA testing was negative cystic fibrosis testing was negative initial screen that was done on 07/20/2024 shows hepatitis B negative hepatitis C negative RPR nonreactive blood group is O+ antibody screen negative HIV negative gonorrhea and Chlamydia negative CBC showed a hemoglobin of 13.9 platelets of 175 toxicology screen was negative Labs Labs: Negative: RPR, Hepatitis B, Rubella Titre, HIV, Chlamydia, Gonorrhea and Group Beta Strep Patient underwent an induction of labor with Cervidil followed by Pitocin. She eventually had an AROM. Patient had epidural placed. She progressed to co mplete and only pushed for 37 minutes. She delivered approximately 1730 on 03/19/25. See delivery note for further details. course was uncomplicated, her vitals remained stable and her hemog lobin was stable she was discharged home day #1 in stable condition Peripartum Data Delivery Method: Normal Vaginal Delivery complications: none Status at Discharge Cognitive/behavioral status at discharge: Alert and oriented x 3 Functional status at discharge: independent ambulation Overall status at discharge: patient is progressing back to baseline Time Spent with Patient Time attestation: Total time spent providing and/or coordinating discharge services: Time spent: Less than 30 minutes Exam Vital Signs Temp Pulse Resp BP Pulse Ox O2 Del Method 98.0 F 112 H 19 95/58 L 97 Room Air 03/20/25 08:00 03/20/25 08:00 03/20/25 08:00 03/20/25 08:00 03/20/25 08:00 03/20/25 08:00 Narrative Exam Fundus firm nontender extremities show no significant edema or erythema. Discharge Plan Plan Patient Disposition: HOME (Self Care) Disposition Comment: Stable Patient condition on transfer: Stable Prescriptions/Referrals Prescriptions/Med Rec: No Action No Known Home Medications Referrals: No Primary/Family,Physician [Primary Care Provider] - Patient/Caregiver Discharge Instructions Discharge Activity: activity as tolerated Other Discharge Activity Instructions:: Pelvic rest x 6 weeks. No intercourse, tampons, douching, bathtubs, swimming pools x 6 weeks Other Discharge Diet Instructions: Drink lots of water. Continue to take vitamins if breast-feeding. Education Materials: After a Vaginal , Breastfeed Holds, , : Caring for Yourself Print Language: Vietnamese Activity Restrictions/Additional Instructions: Call for heavy vaginal bleeding, fevers or chills. Severe pelvic pain or depression. [facility] 1 week. Stand Alone Forms: Kelsey Award Info., Patient Portal Info Letter Discharge Order Discharge Orders: Discharge (Routine); Ordered 03/20/25 Ordered By: Virginie Qureshi ([facility]) Planned Discharge Date 03/20/25
[2025-03-20 12:00] VITALS: BP 111/69; PULSE 88; RESP 18; TEMP 36.7; O2SAT 97
[2025-03-20] MEDS: IBUPROFEN TAB 400 MG TABLET 800 MG PO (12:04)
--- NOTE | 2025-03-20 13:31 | PC.SS ---
SS spoke with pt at bedside using all safety and precautionary measures. Upon entering the room FOB was holding and rocking the baby while trying to feed baby. Pt gave permission for family members to be present included was Abi, identified as cousins. FOB was in room, pt gave permission for FOB to remain in room while SS and pt spoke. Pt at first seemed hesitant to answer questions posed by SS, once pt was comfortable pt was able to answer questions without looking to FOB for the answers. Pt reported feeling good. Pt is currently involved with WIC and EBT. SS provided information for additional services which included [employer], [facility] and [facility]. Pt reported not having history of drugs or alcohol use in the past. Pt reported no history of domestic violence. Pt currently lives with FOB who is involved. Pt has good support network. Pt understands if she is overwhelmed and needs help of the resources available to her. Pt stated current PCP is Dr. Amaya. SS encouraged pt and FOB to speak with OBGYN for list of pediatricians. Pt was receptive to this. SS feels baby is safe to discharge home with mom when medically cleared. Pt is cleared for discharge from .
[2025-03-20 15:52] VITALS: BP 99/60; PULSE 89; RESP 18; TEMP 36.7; O2SAT 97
== END 2025-03-20 17:38 | disposition home or self-care (01) | DRG 560 ==
LOC: S4SX 03-19 09:46 → S4NX 03-19 19:52
PROVIDERS: Obstetrics & Gynecology; Admitting Provider Specialist; Visit Provider Specialist
DX: O48.0 Post-term pregnancy (principal); Z3A.41 41 weeks gestation of pregnancy; Z37.0 Single live birth; O70.0 First degree perineal laceration during delivery; O69.81X0 Labor and delivery complicated by cord around neck, without compression, not applicable or unspecified; O77.0 Labor and delivery complicated by meconium in amniotic fluid; O98.42 Viral hepatitis complicating childbirth; B19.10 Unspecified viral hepatitis B without hepatic coma; O69.89X0 Labor and delivery complicated by other cord complications, not applicable or unspecified
CPT/HCPCS: 36415; 59409; 85025; 86780; 86850; 86900; 86901; 94762; J1885; J2590; J2795; J3010; J3490; J7120; A9270